=== PATIENT | male | born 1985 | race Caucasian/White ===

== ENCOUNTER 2022-08-11 16:23 | Emergency (ER) | payer OTHER ==
[~2022-08-11] VITALS: Ht 177.8 cm; Wt 61.4 kg
[2022-08-11] MEDS ORDERED: proparacaine 0.5% ophthalmic drops 15ml RIGHTEYE ONE (19:30)
[2022-08-11] MEDS ORDERED: gentamicin 0.3% ophthalmic drops 5ML RIGHTEYE ONE (19:30)
[2022-08-11 19:55] VITALS: BP 108/61
[2022-08-11] MEDS ORDERED: GENT5DRO4 RIGHTEYE (20:18)
== END 2022-08-11 20:25 | disposition home or self-care (01) ==
LOC: ER 16:24
DX: S05.01XA Injury of conjunctiva and corneal abrasion without foreign body, right eye, initial encounter (principal); X58.XXXA Exposure to other specified factors, initial encounter; Y93.89 Activity, other specified; Y92.89 Other specified places as the place of occurrence of the external cause; Y99.8 Other external cause status
CPT/HCPCS: 99283

== ENCOUNTER 2022-12-05 10:57 | Emergency (ER) | payer BC, OTHER ==
[~2022-12-05] VITALS: Ht 177.8 cm; Wt 55.4 kg
[~2022-12-05 10:57] MED LIST: GENT5DRO7 RIGHTEYE
[2022-12-05 11:07] VITALS: BP 117/55
[2022-12-05] MEDS ORDERED: proparacaine 0.5% ophthalmic drops 15ml EACHEYE ONE (11:45)
[2022-12-05] MEDS ORDERED: erythromycin ophthalmic ointment 1gm tube LEFTEYE ONE (12:30)
[2022-12-05] MEDS ORDERED: ERYT1OIN6 LEFTEYE (12:34)
== END 2022-12-05 12:52 | disposition home or self-care (01) ==
LOC: ER 10:58
DX: S05.02XA Injury of conjunctiva and corneal abrasion without foreign body, left eye, initial encounter (principal); Z60.2 Problems related to living alone; Z79.899 Other long term (current) drug therapy; X58.XXXA Exposure to other specified factors, initial encounter; Y93.89 Activity, other specified; Y92.89 Other specified places as the place of occurrence of the external cause; Y99.8 Other external cause status
CPT/HCPCS: 99283